=== PATIENT | female | born 1965 | race Asian ===

== ENCOUNTER 2016-08-21 11:00 | Emergency (ER) | payer OTHER ==
[~2016-08-21] VITALS: Ht 154.9 cm; Wt 56.5 kg
[~2016-08-21 11:00] MED LIST: ACET-1600 PO; LISI-170 PO
[2016-08-21 11:13] VITALS: BP 124/78
[2016-08-21] MEDS ORDERED: DIAZEPAM 5 MG TABLET ONE (11:44)
[2016-08-21] MEDS ORDERED: KETOROLAC 30 MG/1 ML ONE (11:44)
[2016-08-21] MEDS ORDERED: DIAZ10TA PO (11:47)
[2016-08-21] MEDS ORDERED: ZOLP10TA PO (11:47)
[2016-08-21] MEDS ORDERED: DIAZEPAM 5 MG TABLET PO ONE (12:00)
[2016-08-21] MEDS ORDERED: KETOROLAC 30 MG/1 ML IM ONE (12:00)
[2016-08-21 12:23] LABS: BLOOD UREA NITROGEN 16 mg/dL (7-18)
== END 2016-08-21 13:11 | disposition home or self-care (01) ==
LOC: ED 12:40
DX: S86.912A Strain of unspecified muscle(s) and tendon(s) at lower leg level, left leg, initial encounter (principal); X58.XXXA Exposure to other specified factors, initial encounter; Y93.89 Activity, other specified; Y99.8 Other external cause status; Y92.89 Other specified places as the place of occurrence of the external cause
CPT/HCPCS: 36415; 80048; 93971; 96372; 99285; J1885; J7512

== ENCOUNTER → 2018-01-31 | Outpatient (CLI) | payer OTHER ==
[~2018-01-31] MED LIST changes: +DIAZ10TA PO; +ZOLP10TA PO
[2018-01-31 10:53] LABS: BASOPHILS # (AUTO) 0.01 x10^3/uL (0-0.1); BASOPHILS % (AUTO) 0 % (0-1); EOSINOPHILS # (AUTO) 0.41 x10^3/uL (0-0.4); EOSINOPHILS % (AUTO) 4 % (1-7); LYMPHOCYTES # (AUTO) 2.34 x10^3/uL (1-3.4); LYMPHOCYTES % (AUTO) 22 % (22-44); MD NO; MONOCYTES # (AUTO) 0.74 x10^3/uL (0.2-0.8); MONOCYTES % (AUTO) 7 % (2-9); NEUTROPHILS # (AUTO) 6.95 x10^3/uL (1.8-6.8); NEUTROPHILS % (AUTO) 67 % (42-75); PLATELET COUNT 382 x10^3/uL (130-400); RED BLOOD COUNT 4.67 x10^6/uL (3.82-5.3); RED CELL DISTRIBUTION WIDTH 12.3 % (9.6-15.2)
[2018-01-31 10:55] LABS: MICROSCOPIC AUTO
[2018-01-31 11:01] LABS: ANION GAP 6 mmol/L (5-15); CALCIUM 8.8 mg/dL (8.5-10.1); CHLORIDE 110 mmol/L (98-107); CREATININE 0.98 mg/dL (0.55-1.02)
[2018-01-31 11:02] LABS: ALANINE AMINOTRANSFERASE 27 U/L (12-78); ALBUMIN 3.9 g/dL (3.4-5.0); CHOLESTEROL, TOTAL 144 mg/dL (140-239)
[2018-01-31 11:12] LABS: ALKALINE PHOSPHATASE 85 U/L (45-117); BILIRUBIN,TOTAL 0.6 mg/dL (0.2-1.0); CHOL/HDL RATIO 2.3; HDL CHOL % 43 % (28-40); HDL CHOLESTEROL (DIRECT) 62 mg/dL (40-60); LDL CHOLESTEROL,CALCULATED 49 mg/dL (54-169); LDL/HDL RATIO 0.8 (0.5-3.0); TOTAL PROTEIN 8.3 g/dL (6.4-8.2); TRIGLYCERIDES 167 mg/dL (50-200); VLDL CHOLESTEROL 33 mg/dL (0-25)
== END | disposition home or self-care (01) ==
LOC: LAB 10:28
PROVIDERS: ATTEND Family Medicine
DX: Z13.228 Encounter for screening for other metabolic disorders (principal); Z13.220 Encounter for screening for lipoid disorders; Z13.9 Encounter for screening, unspecified
CPT/HCPCS: 36415; 80053; 80061; 81001; 82306; 84443; 85025

== ENCOUNTER 2018-06-28 17:22 | Emergency (ER) | payer OTHER ==
[~2018-06-28] VITALS: Ht 152.4 cm; Wt 54.0 kg
[2018-06-28 18:02] LABS: ALBUMIN 4.4 g/dL (3.4-5.0); ANION GAP 7 mmol/L (5-15); CALCIUM 9.1 mg/dL (8.5-10.1); CHLORIDE 104 mmol/L (98-107); CREATININE 1.07 mg/dL (0.55-1.02)
[2018-06-28 18:03] LABS: BASOPHILS # (AUTO) 0.02 x10^3/uL (0-0.1); BASOPHILS % (AUTO) 0 % (0-1); EOSINOPHILS # (AUTO) 0.29 x10^3/uL (0-0.4); EOSINOPHILS % (AUTO) 4 % (1-7); LYMPHOCYTES # (AUTO) 2.46 x10^3/uL (1-3.4); LYMPHOCYTES % (AUTO) 30 % (22-44); MD NO; MEAN CORPUSCULAR HEMOGLOBIN 31.4 pg (27.0-34.8); MEAN CORPUSCULAR HGB CONC 34.8 g/dL (32.4-35.8); MEAN CORPUSCULAR VOLUME 90.2 fL (80-100); MEAN PLATELET VOLUME 8.4 fL (7.4-10.4); MONOCYTES # (AUTO) 0.66 x10^3/uL (0.2-0.8); MONOCYTES % (AUTO) 8 % (2-9); NEUTROPHILS # (AUTO) 4.91 x10^3/uL (1.8-6.8); NEUTROPHILS % (AUTO) 59 % (42-75); PLATELET COUNT 368 x10^3/uL (130-400); RED BLOOD COUNT 4.93 x10^6/uL (3.82-5.3); RED CELL DISTRIBUTION WIDTH 12.4 % (9.6-15.2)
[2018-06-28 18:07] LABS: TROPONIN I < 0.015 ng/mL (0.000-0.045)
[2018-06-28] MEDS ORDERED: ATOR10TA9 PO (18:08)
[2018-06-28] MEDS ORDERED: DIAZ10TA PO (18:08)
[2018-06-28] MEDS ORDERED: LISI-170 PO (18:08)
[2018-06-28] MEDS ORDERED: albuterol INH (18:08)
[2018-06-28] MEDS ORDERED: CYCL-259 PO (18:08)
--- NOTE | 2018-06-28 18:09 | NUR ---
pt presents to ED with c/o syncope this pm upon awakening and getting out of bed. EKG taken in triage. pt fell with contact to back of head, no deformity/wound noted. pt is a&ox4, resps even and unlabored, neuro intact. all montiors in place. call light in reach. awaiting MD and orders at this time.
--- NOTE | 2018-06-28 18:35 | NUR ---
report given to lunch OSCAR Oglesby.
--- NOTE | 2018-06-28 19:02 | NUR ---
FLOAT RN COVERING MEAL BREAK. ORTHOS DONE BY PSYCHIATRY RESIDENT NEGATIVE.
--- NOTE | 2018-06-28 19:23 | NUR ---
REPORT RECEIVED FROM OSCAR CARVAJAL. PIV started, IVF infusing. pt a&o, resps even and unlabored, nsr on carpenter labor supervisor with no ectopy. Call light in reach.
[2018-06-28] MEDS ORDERED: SODIUM CHLORIDE 0.9% 1,000ML IVBOLUS ONE (19:30)
--- NOTE | 2018-06-28 20:49 | NUR ---
pt resting on gurney, pt a&o, resps even and unlabored. 1L NS bolus complete. pt to be dc'd.
[2018-06-28 21:02] VITALS: BP 107/63
--- NOTE | 2018-06-28 21:02 | NUR ---
Patient/Caregiver given discharge instructions and they have confirmed that they understand the instructions. Patient ambulatory with steady gait.
== END 2018-06-28 21:04 | disposition home or self-care (01) ==
LOC: ED 19:03
DX: S16.1XXA Strain of muscle, fascia and tendon at neck level, initial encounter (principal); I95.1 Orthostatic hypotension; W19.XXXA Unspecified fall, initial encounter; Y93.89 Activity, other specified; Y92.89 Other specified places as the place of occurrence of the external cause; Y99.8 Other external cause status
CPT/HCPCS: 36415; 80048; 82040; 84484; 85025; 93005; 96360; 96361; 99284; J7030

== ENCOUNTER 2018-07-05 17:03 | Emergency (ER) | payer OTHER ==
[~2018-07-05] VITALS: Ht 152.4 cm; Wt 58.0 kg
[~2018-07-05 17:03] MED LIST changes: +ATOR10TA9 PO; +CYCL-259 PO; +albuterol INH
--- NOTE | 2018-07-05 18:39 | NUR ---
CT CERVICAL SPINE BACK, PT CLEARED-C COLLAR REMOVED.
[2018-07-05 19:08] VITALS: BP 127/83
[2018-07-05] MEDS ORDERED: DIAZEPAM 5 MG TABLET ONE (19:21)
[2018-07-05] MEDS ORDERED: DIAZEPAM 5 MG TABLET PO ONE (19:30)
== END 2018-07-05 20:09 | disposition home or self-care (01) ==
LOC: ED 20:03
DX: G44.219 Episodic tension-type headache, not intractable (principal); I10 Essential (primary) hypertension
CPT/HCPCS: 70450; 72125; 99284